=== PATIENT | male | born 1995 | race Caucasian/White ===

== ENCOUNTER 2022-06-18 16:10 | Emergency (ER) | payer OTHER, SELFPAY ==
[2022-06-18] VITALS (7 sets, daily range): BP systolic 134–156; BP diastolic 87–131; PULSE 80–92; RESP 12–20; TEMP 36.2; O2SAT 94–100; BMI 36.3
--- NOTE | 2022-06-18 17:01 | EX.ED.UPPERE ---
HPI History of Present Illness HPI Narrative: Injured left shoulder doing yard work. Concerned it may be dislocated. Chief Complaint: Upper Extremity Injury Informant: patient Occured/Mechanism Mechanism/Context: Yes injury Onset/Context/Timing Onset: Today Context: Sudden Onset Timing: Continuous Quality of Pain: Dull and Aching Current Severity: Moderate Maximum Severity: Moderate Associated Symptoms Associated Symptoms: Positive for Loss of Funtion; Negative for Parasthesia or Weakness Narrative Narrative: 26-year-old male no seen past medical history. No significant contributory surgeries. He was working outside today and he injured his left shoulder he thinks he may have dislocated. He has done this before but is never needed to come the hospital for it. He has never had any shoulder surgery. And he is right-hand dominant. Prior similar symptoms: Yes Recent Illness/Hospitalization: No PFSH PFSH Medical History no medical history no medical history Allergy/AdvReac Type Severity Reaction Status Date / Time Penicillins Allergy Hives Verified 06/18/22 16:14 Sulfa (Sulfonamide Allergy Rash Verified 06/18/22 16:14 Antibiotics) Surgical History History of hernia repair no surgical history Social History Smoking Status: Never smoker ROS ROS ED ROS Narrative Recent URI. Review of Systems ROS Unobtainable: Denies due to encephalopathy Constitutional Constitutional ED: Denies chills or fever(s) Eyes Eyes: Denies blurry vision ENT ENT ED: Denies ear pain Cardiovascular Cardiovascular: Denies chest pain Respiratory/Chest Respiratory/Chest: Denies cough or dyspnea Gastrointestinal Gastrointestinal: Denies abdominal pain Genitourinary Genitourinary ED: Denies dysuria Musculoskeletal Musculoskeletal: Denies back pain Integumentary Denies abscess Neurologic Neurologic: Denies headache(s) Psychiatric Psychiatric: Denies anxiety Endocrine Endocrinology: Denies cold intolerance Hematologic/Lymphatic Hematologic/Lymphatic: Denies easy bleeding Allergic/Immunologic Allergic/Immunologic ED: Denies mouth swelling or tongue swelling EXAM Physical Exam Narrative Exam Narrative: 26-year-old male no acute distress vital signs stable afebrile. H EENT exam normal. Atraumatic. Neck nontender. Back nontender. Lungs clear equal symmetrical bilaterally. Heart regular rhythm no murmur. Chest were nontender. Abdomen soft nontender. Right upper and both lower extremities are nontender full range of motion. Left shoulder he is unable to do range of motion. It is held and internal rotation. There appears to be a deficit consistent with a left shoulder dislocation. Distal humerus, elbow, forearm wrist and hand are nontender. Normal radial pulse. Normal marketing area manager strength and sensation. Neurologic exam normal. Const Vital Signs: 06/18/22 16:11 Temperature 97.1 F L Temperature Source Temporal Pulse Rate 92 Respiratory Rate 16 Blood Pressure 147/90 H Blood Pressure Mean 109 Pulse Ox 99 Oxygen Delivery Method Room Air Positive well nourished and well developed; Negative for cachectic, contractures or unkempt General Appearance ED: well developed and NAD; Negative for unkempt, cachectic, contractures, cyanotic or diaphoretic Nutritional Appearance: Negative for cachectic HEENT Reports moist mucous membranes normocephalic and atraumatic; Negative for trauma or tenderness Eyes PERRL and EOMs intact bilaterally General Eye ED: Negative for other Neck full ROM and supple General: Negative for tenderness Lymph Lymphatic: Negative for other Chest Wall inspection of chest normal and palpation of chest normal Chest: Negative for other Resp normal respiratory effort and clear to auscultation bilaterally Effort and Inspection: Negative for pain with movement Auscultation: Negative for rales, rhonchi, wheezes or diminished lung sounds Cardio regular rate, regular rhythm, S1 normal heart sound, S2 normal heart sound and no murmurs Rate: Negative for bradycardia Rhythm: Negative for abnormal rhythm GI non-tender, non-distended and no masses Inspection: Negative for abdominal distention Auscultation: normoactive bowel sounds Palpation: soft; Negative for tender or guarding Back/Spine no CVA tenderness General Back: Negative for CVA tenderness Cervical Spine: Negative for cervical spine tenderness Thoracic Spine / Upper Back: Negative for thoracic spinal tenderness Lumbar Spine / Lower Back: Negative for lumbar spinal tenderness Extremity normal to inspection and full ROM Extremity Narrative: Except left shoulder. Held in internal rotation. Cannot do active range of motion. Pain with passive range of motion. Suspect dislocation. Humerus distally, elbow, forearm wrist or hand are nontender neurovascular intact with normal radial pulse. Normal marketing area manager strength. Normal sensation. General Extremety ED: Negative for edema General Extremity: Negative for edema Neuro oriented x3, moves all extremities, no focal motor deficits and no sensory deficits noted Sensorium / Orientation: alert, oriented to person and oriented to place; Negative for orientation impaired, lethargic or stuporous Motor Exam: strength 5/5 throughout Psych mental status grossly normal Appearance: Negative for unkempt Attitude: No agitated Mood & Affect: Negative for depressed, anxious or tearful Skin General Skin Exam: Negative for petechiae Lesions: no lesions Rashes: no rashes Trauma: no lacerations or abrasions; Negative for abrasion MDM MDM MDM Narrative Medical decision making narrative: 26-year-old male with suspected dislocated shoulder. X-ray being obtained. IV morphine and Zofran. Patient doing well on repeat exam at 7:50 PM. He is awake alert. Conscious sedation has worn off. He is in a sling and swath. I spoke to he and family and friends at bedside he will be discharged home with outpatient follow-up with Dr. Heredia of orthopedics. Radiography Diagnostic Testing: Left shoulder x-ray 3 views interpreted by myself shows a dislocated left shoulder. No fracture. Repeat left shoulder x-rays were done after reduction and the shoulder is in appropriate positioning now. Again 3 views and again interpreted by myself. Procedures Other Procedures Procedure(s): Conscious sedation. Patient was given propofol. A total of 260 mg was given. Left anterior shoulder dislocation reduced. Patient placed in sling and swath. Post reduction left shoulder x-ray appear to be in appropriate positioning. Repeat exam he is doing well at 7:50 PM will be discharged home. Discharge Plan Triage Chief Complaint: Upper Extremity Injury ED Provider: Miguelangel Nieto Dx/Rx/DC Orders Clinical Impression: Anterior dislocation of left shoulder Instructions: ED Dislocation: Shoulder (Reduced) Primary Care Provider: Care Physician,No Primary Referrals: Alexis Heredia DO [Med Staff - Active Staff] - As soon as possible Care Physician,No Primary [Primary Care Provider] - Activity Restrictions/Additional Instructions: Ice to shoulder. Motrin and Tylenol for pain. Leave the sling and swath on except to bathe. If you move this around too much you could redislocated. Call and follow-up with a local orthopedic physician. Dr. Alexis Heredia is who I referred you to. Disposition Disposition: Home, Self Care
[2022-06-18] MEDS: Ondansetron 4 MG/2 ML Vial IV (17:04)
[2022-06-18] MEDS: morphine 8 MG/ML Syringe IV (17:05)
--- NOTE | 2022-06-18 17:18 | RAD_ITS ---
STUDY: X-RAY - LEFT SHOULDER REASON FOR EXAM: Male, 26 years old. Dislocation. Pain with movement. TECHNIQUE: 2 view(s) of the shoulder. COMPARISON: None. FINDINGS: There is an anterior dislocation of the glenohumeral joint. There is no associated fracture. Normal acromioclavicular joint. Normal acromion. Normal humeral head and visualized proximal humerus. The soft tissue structures are unremarkable. Normal visualized pulmonary apex. RAD/Shoulder min 2 Views IMPRESSION: Anterior dislocation of the glenohumeral joint. Electronically Signed: Suresh Mendiola DO at 17:41 EDT ,
--- NOTE | 2022-06-18 18:20 | RAD_ITS ---
STUDY: X-RAY - LEFT SHOULDER REASON FOR EXAM: Male, 26 years old. Post reduction. TECHNIQUE: 2 view(s) of the shoulder. COMPARISON: Left shoulder, June 18, 2022 (1726 hours). FINDINGS: Christian of the glenohumeral joint. There is no visualized fracture. Normal acromioclavicular joint. Normal acromion. Normal humeral head and visualized proximal humerus. The soft tissue structures are unremarkable. Normal visualized pulmonary apex. RAD/Shoulder min 2 Views IMPRESSION: Successful reduction of the anterior glenohumeral dislocation seen on the earlier study. Electronically Signed: Suresh Mendiola DO at 18:59 EDT ,
[2022-06-18] MEDS: Propofol 200 MG/20 ML Vial IV BOLUS (18:29)
== END 2022-06-18 20:20 | disposition home or self-care (01) ==
PROVIDERS: Emergency Provider Emergency Medicine; Visit Provider Emergency Medicine
DX: S43.015A Anterior dislocation of left humerus, initial encounter (principal); X58.XXXA Exposure to other specified factors, initial encounter; Y93.H2 Activity, gardening and landscaping; Y92.096 Garden or yard of other non-institutional residence as the place of occurrence of the external cause
CPT/HCPCS: 23650; 73030; 96374; 96375; 99152; 99284; J7030; A4216; J2405